=== PATIENT | female | born 1975 | race Caucasian/White ===

== ENCOUNTER → 2016-05-03 | Outpatient (CLI) | payer OTHER ==
--- NOTE | 2016-05-03 15:39 | MA ---
Digital Diagnostic Mammogram, With Tomosynthesis Clinical Indications: 40-year-old with palpable lump in the 3 o'clock left breast. Family history o f breast cancer. Comparison: Mammograms March 31, 2014, October 30, 2011, March 13, 2011, July 27, 2010. Technique: Bilateral cephalocaudal projections and XCCL views are obtained. Digital breast tomosyn thesis was performed in the MLO projection. with reconstruction at 1.0-mm slice thickness and composi te MLO views reconstructed. This examination is processed by the iCAD computer aided detection syste m. Breast Density: Type C: The breast tissue is heterogeneously dense, which may obscure small masses. Findings: CAD was reviewed. There is no visible etiology for the patient's left breast lump. There is a focal asymmetry in the medial left breast, best seen on tomosynthesis view #60 of 79. No suspi cious calcifications, masses, or areas of architectural distortion are identified in the right breast . Heterogeneously dense breast parenchyma reduces sensitivity for noncalcified masses. Impressions 1. No visible etiology for the patient's palpable lump. 2. Ovoid left breast asymmetry. BI-RADS 0: Needs additional imaging evaluation. Recommendation: Ultrasound, which will be performed later the same day. Please see separate dictati on for findings and recommendations. [facility] will send a result letter to the patient. The patient's information is entered into a reminder system with a target due date for her next mammo gram. [id number]
--- NOTE | 2016-05-03 16:37 | US ---
Diagnostic Left Breast Ultrasound History: Palpable lump in the 3 o'clock left breast on recent physical exam, asymmetry in the medial left breast on mammograms. Comparison: Diagnostic mammograms from the same day. Technique: Limited grayscale and Doppler ultrasound in the region of mammographic abnormality is perf ormed. Real-time sonography is performed by the radiologist. Findings: Directed physical exam is performed in the 3 o'clock left breast with no discrete lump iden tified. Ultrasound of the outer left breast shows scattered small simple cysts with no suspicious mas ses or areas of architectural distortion. Ultrasound of the medial left breast in the area of mammogr aphic asymmetry shows a hypoechoic 0.7 x 0.7 x 0.5 cm lobulated solid mass at 10 o'clock 2 cm from ni pple, which corresponds to the mammographic finding. There appear to be subtle calcifications within it. Impression: 1. Medial left breast mass, suspicious. BI-RADS 4: Suspicious Finding 2. Outer left breast lump: No definite etiology for the palpable lump, with scattered tiny cysts like ly unrelated to the finding. Recommendation: 1. Ultrasound-guided biopsy of a solid left breast mass at 10 o'clock 2 cm from the nipple. [employer] will contact the patient within 24 hours to arrange biopsy. 2. Clinical followup for left breast lump with no definite imaging correlate. [facility] will send a result letter to the patient. Findings recommendations discussed with Mara Corbin today at 1630 hours. The need for an order w as discussed. An order for ultrasound-guided left breast biopsy can be faxed to [phone].
== END ==
LOC: FIMAGING 14:13
PROVIDERS: ATTEND Obstetrics & Gynecology Gynecology
DX: N63 Unspecified lump in breast (principal)
CPT/HCPCS: G0204; G0279

== ENCOUNTER → 2016-05-17 | Outpatient (CLI) | payer OTHER ==
[~2016-05-17] MED LIST: THROMBIN (RECOMBINANT) 5,000 UNIT VIAL TP ONE
--- NOTE | 2016-05-17 10:06 | MA ---
Diagnostic Digital Mammogram Left Breast Reason for examination: Follow up sonographically guided left breast biopsy. Technique: Craniocaudal and true lateral views were obtained. Findings: The Suros marker is deployed at the biopsy site in the medial mid left breast.. Impression: The Suros marker is deployed at the biopsy site. We will await pathologic results.
--- NOTE | 2016-05-17 15:07 | US ---
Vacuum-assisted Ultrasound-Guided Core Biopsy of the Left Breast Reason for examination: Evaluate small solid nodule identified at the 10 o'clock position 2 cm from t he nipple.. Crosscutting Measure #226: Current tobacco user: no. Technique: Informed consent was obtained. Following sterile preparation and local anesthesia and util izing vacuum assistance and sonographic guidance, a 9 gauge Suros needle was advanced into the lesion . Multiple large core biopsies were obtained. The biopsy was performed with continuous real time sono graphic monitoring. A Suros marker was deployed to omayra the biopsy site. The needle was removed and hemostasis was obtained with manual compression. The patient tolerated the procedure well and no immediate complications occurred. A post biopsy mammogram will be obtained to evaluate marker deployment. Discharge instructions were given by the Radiology nurse. Impression: Successful sonographically guided large core biopsy. Material was sent to Pathology. We will await results.
== END ==
LOC: FIMAGING 08:42
PROVIDERS: ATTEND Obstetrics & Gynecology Gynecology
PROC: 0HBU3ZX Excision of Left Breast, Percutaneous Approach, Diagnostic (ICD-10-PCS; principal; 2016-05-17)
PROC: BH01ZZZ Plain Radiography of Left Breast (ICD-10-PCS; 2016-05-17)
DX: D24.2 Benign neoplasm of left breast (principal); N60.12 Diffuse cystic mastopathy of left breast
CPT/HCPCS: G0206

== ENCOUNTER → 2017-02-16 | Outpatient (CLI) | payer OTHER | LOC: FIMAGING 15:53 | PROVIDERS: ATTEND Physician Assistant Medical | DX: Z12.39 Encounter for other screening for malignant neoplasm of breast (principal); R92.8 Other abnormal and inconclusive findings on diagnostic imaging of breast ==

== ENCOUNTER → 2017-04-17 | Outpatient (CLI) | payer OTHER | LOC: FIMAGING 15:59 | PROVIDERS: ATTEND Obstetrics & Gynecology Gynecology | DX: Z12.31 Encounter for screening mammogram for malignant neoplasm of breast (principal); Z80.3 Family history of malignant neoplasm of breast ==

== ENCOUNTER → 2018-06-03 | Outpatient (CLI) | payer OTHER | LOC: FIMAGING 15:05 | PROVIDERS: ATTEND Family Medicine | DX: Z12.31 Encounter for screening mammogram for malignant neoplasm of breast (principal) ==